=== PATIENT | male | born 1985 | race Caucasian/White ===

== ENCOUNTER 2023-12-11 09:44 | Outpatient (CLI) | payer OTHER, SELFPAY | END 2023-12-11 09:45 | disposition home or self-care (01) | LOC: ANHBWCAUD 09:46 | PROVIDERS: PCP Student in an Organized Health Care Education/Training Program; Visit Provider Student in an Organized Health Care Education/Training Program | DX: H93.13 Tinnitus, bilateral (principal); H90.3 Sensorineural hearing loss, bilateral; F32.A Depression, unspecified | CPT/HCPCS: 92557; 92567 ==